=== PATIENT | male | born 1935 | race Hispanic/Latino ===

== ENCOUNTER → 2019-01-10 | Outpatient (CLI) | payer OTHER ==
[2019-01-10 09:13] LABS: CREATININE 0.9 mg/dL (0.5-1.5)
== END | disposition home or self-care (01) ==
LOC: LAB 08:44
PROVIDERS: ATTEND Internal Medicine Cardiovascular Disease
DX: I65.23 Occlusion and stenosis of bilateral carotid arteries (principal)
CPT/HCPCS: 36415; 82565; 84520

== ENCOUNTER 2019-06-04 16:58 | Emergency (ER) | payer OTHER ==
[2019-06-04] MEDS ORDERED: DEXAMETHASONE SOD PHOSPHATE 10MG/ML 1ML VIAL ONE (17:25)
[2019-06-04] MEDS ORDERED: FAMOTIDINE 20MG TAB 20 MG TAB ONE (17:26)
[2019-06-04] MEDS ORDERED: DIPHENHYDRAMINE HCL 25 MG CAPSULE ONE (17:27)
== END 2019-06-04 18:52 | disposition home or self-care (01) ==
LOC: EDH 16:58
DX: L50.0 Allergic urticaria (principal); Z88.0 Allergy status to penicillin; Z72.0 Tobacco use
CPT/HCPCS: 96372; 99283; J1100; Q0163